=== PATIENT | male | born 1995 | race Caucasian/White ===

== ENCOUNTER 2025-01-08 16:57 | Emergency (ER) | payer MEDICAID, SELFPAY ==
[2025-01-08 16:59] VITALS: BP 176/100; PULSE 117; RESP 20; TEMP 36.3; O2SAT 98
--- NOTE | 2025-01-08 17:10 | RAD_ITS ---
PROCEDURE: ANKLE MIN 3 VIEWS 01/08/2025 REASON FOR EXAM: PAIN, UNABLE TO BEAR WEIGHT TECHNIQUE: 3 views of the left ankle COMPARISON: None. FINDINGS: No evidence of acute fracture or dislocation. Os trigonum. No ankle joint effusion. The soft tissues are unremarkable. RAD/Ankle min 3 Views IMPRESSION: No acute osseous abnormalities. Os trigonum. Reading Location: [place] [id number]
--- NOTE | 2025-01-08 19:20 | EX.ED.DYSGE1 ---
HPI History of Present Illness Chief Complaint: Lower Extremity Injury Narrative Narrative: Patient is a 21-year-old male with no known significant past medical history who presents to the emergency department chief complaint of left ankle pain. Patient states that he was mowing the lawn earlier when he rolled his left ankle. He states that he was having significant pain afterwards. He states that he tried to take 800 mg ibuprofen and states that this did help with his pain but given that he still having further pain he came here for evaluation management. Patient states that he has had issues with this ankle for a extended period time and states that the end of March he has an appointment with a doctor to further evaluate his ankle. Patient denies any other pain from the fall. Patient states that while here in the emergency department he was able to get up and ambulate and he did not have any pain during this. PFSH [facility] Home Medications ?Medication ?Instructions ?Recorded ?Last Taken ?Type warfarin 4 mg tablet (Jantoven) 8.5 mg PO DAILY 07/22/13 Unknown History Allergy/AdvReac Type Severity Reaction Status Date / Time No Known Allergies Allergy Verified 01/08/25 16:58 Social History Smoking Status: Unknown if ever smoked ROS ROS ED ROS Narrative Constitutional: Denies headaches Neurological: Denies numbness, tingling Musculoskeletal: Complains of left ankle pain as noted above Skin: Denies any rashes or lesions EXAM Physical Exam Narrative Exam Narrative: General: Patient was sitting in wheelchair in triage rest comfortably did not appear to be in acute distress Head: Atraumatic, normocephalic Eyes: PERRL bilaterally, EOMI bilateral, no conjunctival injection noted Neck: Soft, supple, trachea midline Cardiovascular: Patient tachycardic with regular rhythm Respiratory: Clear to auscultation bilaterally Musculoskeletal: Patient is some tenderness palpation of the dorsal aspect of his foot with mild swelling noted no tenderness to palpation over the medial lateral aspect of his ankle, all other bony prominences palpated joints taken to full range of motion no pain elicited Extremities: DP pulses +2/4 in the left lower extremity, +5/5 strength noted in the bilateral upper and lower extremities Neurological: Patient following commands knew that he was at [facility] the year is 2024. Sensation grossly intact in the bilateral lower extremities Skin: Warm, dry, intact no rashes or lesions noted Const Vital Signs: 01/08/25 16:59 Temperature 97.4 F L Temperature Source Temporal Pulse Rate 117 H Respiratory Rate 20 H Blood Pressure 176/100 H Blood Pressure Mean 125 Pulse Ox 98 Oxygen Delivery Method Room Air MDM MDM MDM Narrative Medical decision making narrative: Patient is a 29-year-old male who presents to the emergency department the chief complaint of left ankle pain after rolling it while mowing. On the differential diagnose includes but limited to ankle sprain, fracture, dislocation. Once workup is obtained reviewed which was started prior to my evaluation he will be reevaluated. Patient x-ray reviewed by myself and by radiology which showed no acute osseous abnormalities. Discussed results with the patient he like to go home at this point time. He was advised to rotate Tylenol and ibuprofen [id number] as well as ice and elevate. He is requesting a Aircast for comfort which will be provided. He states that he does not want crutches. He was encouraged to return with any other concerns or worsening symptoms he is agreeable spinal course concerns answered he was discharged home in stable condition. Radiography Diagnostic Testing: Clinical Impression(s) from Imaging Studies Ankle X-Ray 01/08/25 17:10 IMPRESSION: No acute osseous abnormalities. Os trigonum. Reading Location: [place] [id number] Discharge Plan Triage Chief Complaint: Lower Extremity Injury ED Provider: Edgar Rahman Dx/Rx/DC Orders Clinical Impression: Left ankle sprain Prescriptions: No Action warfarin [Jantoven] 4 MG tablet 8.5 mg PO DAILY Primary Care Provider: Care Physician,No Primary Referrals: Care Physician,Luiza Primary [Primary Care Provider] - Saida Johnson Kale, INSTRUCTOR [employer] [[facility]] - Activity Restrictions/Additional Instructions: Follow-up your primary care to physician they referred to in the outpatient setting. Rotate Tylenol and ibuprofen [id number] for pain control when you do this you can take something every 3 hours. Max dose of ibuprofen in 24 hours 3200 mg. Max dose of Tylenol in 24 hours 4000 mg. Ice, elevate ambulate as tolerated. Return with any other concerns Print Language: Turkish Disposition Disposition: Home, Self Care
[2025-01-08 20:05] VITALS: BP 158/81; PULSE 91; RESP 16; TEMP 36.5; O2SAT 99
== END 2025-01-08 20:05 | disposition home or self-care (01) ==
PROVIDERS: Emergency Provider Emergency Medicine; Visit Provider Emergency Medicine
DX: S93.402A Sprain of unspecified ligament of left ankle, initial encounter (principal); X50.1XXA Overexertion from prolonged static or awkward postures, initial encounter; Y93.H2 Activity, gardening and landscaping
CPT/HCPCS: 73610; 99283